=== PATIENT | male | born 1995 | race Caucasian/White ===

== ENCOUNTER 2018-02-17 12:58 | Emergency (ER) | payer BC, OTHER ==
[~2018-02-17] VITALS: Ht 188 cm; Wt 95.3 kg
[~2018-02-17 12:58] MED LIST: CEFD300C3 PO; DOCU-161 PO; HYDR1TAB66 PO; LACT1CAP8 PO; METH4TAB PO; PHEN15SP NS
[2018-02-17] MEDS ORDERED: ASPIRIN 81 MG CHEW (CHILDREN'S ASA) PO ONE (13:15)
[2018-02-17 13:38] LABS: BASOPHILS % (AUTO) 0 % (0-10); EOSINOPHILS # (AUTO) 0.1 10^3/uL (0.0-0.3); EOSINOPHILS % (AUTO) 0 % (0-10); HEMATOCRIT 46 % (40-54); HEMOGLOBIN 15.9 G/DL (13.3-17.7); LYMPHOCYTES # (AUTO) 1.6 X 10^3 (1.0-4.0); LYMPHOCYTES % (AUTO) 14 % (12-44); MEAN CORPUSCULAR HEMOGLOBIN 30 PG (25-34); MEAN CORPUSCULAR HGB CONC 35 G/DL (32-36); MEAN CORPUSCULAR VOLUME 86 FL (80-99); MEAN PLATELET VOLUME 9.3 FL (7.4-10.4); MONOCYTES # (AUTO) 0.7 X 10^3 (0.0-1.0); MONOCYTES % (AUTO) 6 % (0-12); NEUTROPHILS # (AUTO) 9.3 X 10^3 (1.8-7.8); NEUTROPHILS % (AUTO) 79 % (42-75); PLATELET COUNT 322 10^3/uL (130-400); RED BLOOD COUNT 5.35 10^6/uL (4.35-5.85); RED CELL DISTRIBUTION WIDTH 12.9 % (10.0-14.5); WHITE BLOOD COUNT 11.7 10^3/uL (4.3-11.0)
--- NOTE | 2018-02-17 13:52 | Diagnostic Imaging Report ---
Patient History: Anterior chest pain. Technique: Single frontal view of the chest Comparison: None FINDINGS: The lung volumes are normal. No focal consolidation is seen. No large pleural effusion or pneumothorax is seen. The cardiomediastinal silhouette is normal in size and contour. No acute osseous abnormality is seen. IMPRESSION: No acute pulmonary abnormality seen. Dictated by: Dictated on workstation # [id number]
[2018-02-17 13:58] LABS: ALANINE AMINOTRANSFERASE 23 U/L (0-55); ALKALINE PHOSPHATASE 63 U/L (40-136); BILIRUBIN,TOTAL 1.2 MG/DL (0.1-1.0); BUN/CREATININE RATIO 16; CALCIUM 10.3 MG/DL (8.5-10.1); CARBON DIOXIDE 28 MMOL/L (21-32); CHLORIDE 103 MMOL/L (98-107); CREATINE KINASE 197 U/L (30-200); CREATININE SERUM 0.88 MG/DL (0.60-1.30); GFR ESTIMATED > 60; GLUCOSE 96 MG/DL (70-105); MAGNESIUM 2.1 MG/DL (1.8-2.4); POTASSIUM 4.1 MMOL/L (3.6-5.0); SODIUM 139 MMOL/L (135-145); TOTAL PROTEIN 7.4 GM/DL (6.4-8.2)
--- NOTE | 2018-02-17 13:58 | ED Chest Pain ---
General Chief Complaint: Chest Wall/Rib Pain Stated Complaint: CP Nursing Triage Note: AMB TO ROOM REPORTS SINCE LAST NIGHT HAS HAD PRESSURE ACROSS CHEST AND TO L SHOULDER. PRESSURE HAS BEEN INTERMITTEN Nursing Sepsis Screen: No Definite Risk Source: patient Exam Limitations: no limitations History of Present Illness Date Seen by Provider: Feb 17, 2018 Time Seen by Provider: 13:58 Initial Comments 22-year-old male patient presents to the emergency department with complaints of left sided chest pain radiating to the left shoulder and clavicle. Patient states 2 weeks ago they did go skiing and was sore for several days. States this pain feels different then the soreness from skiing. Worse with movement. Patient states it feels crampy in nature. Denies any family history for cardiac disease. 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 states his lips had turned blue during a basketball game and all the cardiac workup was negative.) Modifying Factors: worse with movement, improves with other (improved with aspirin at 0900 and "rubbing the muscle out") Allergies and Home Medications Allergies Coded Allergies: No Known Drug Allergies (Unverified , 03/17/12) Home Medications Naproxen 500 Mg Tablet, 500 MG PO BID Prescribed by: MICHAEL CHRISTY on 02/17/18 152 Orphenadrine Citrate 100 Mg Tablet.er, 100 MG PO BID PRN for SPASMS Prescribed by: MICHAEL CHRISTY on 02/17/181520 Prednisone 20 Mg Tab, 40 MG PO DAILY Prescribed by: MICHAEL CHRISTY on 02/17/18 152 Patient Home Medication List Home Medication List Reviewed: Yes Review of Systems Constitutional: No chills, No diaphoresis, No dizziness, No fever, No malaise EENTM: No Symptoms Reported Respiratory: Denies Cough, Denies Shortness of Air, Denies SOA With Exertion, Denies Wheezing Cardiovascular: See HPI, Chest Pain, Denies Edema, Denies Irregular Heart Rate , Denies Lightheadedness, Denies Palpitations Gastrointestinal: Denies Abdominal Pain, Denies Blood Streaked Stools, Denies Constipated, Denies Diarrhea, Denies Nausea, Denies Poor Appetite, Denies Vomiting, Other (patient does have indigestion occasionally.) Genitourinary: No Symptoms Reported Musculoskeletal: see HPI, No back pain, joint pain (left clavicle.), No joint swelling, No neck pain Skin: no symptoms reported Psychiatric/Neurological: No Symptoms Reported All Other Systems Reviewed Negative Unless Noted: Yes (Negative excepted noted.) Past [place]-Ohzoud-Zprghv Hx Patient Social History Alcohol Use: Occasionally Uses Recreational Drug Use: No Smoking Status: Never a Smoker Recent Foreign Travel: No Contact w/Someone Who Travel: No Recent Infectious Disease Expo: No 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)) Past Medical History Surgeries: Yes (removal of lymph nodes) Respiratory: No Cardiac: No Neurological: No Reproductive Disorders: No Gastrointestinal: No Musculoskeletal: Yes Endocrine: No Psychosocial: No Blood Disorders: No Family Medical History Reviewed Nursing Family Hx No Pertinent Family Hx Physical Exam Vital Signs Vital Signs - First Documented 02/17/18 02/17/18 13:08 15:46 Temp 98.5 Pulse 74 Resp 18 B/P (MAP) 151/99 (116) Pulse Ox 97 O2 Delivery Room Air Capillary Refill : Less Than 3 Seconds General Appearance: No Apparent Distress, WD/WN HEENT: PERRL/EOMI, Pharynx Normal Neck: Full Range of Motion, Normal Inspection, Non Tender, Supple Respiratory: Lungs Clear, Normal Breath Sounds, No Accessory Muscle Use, No Respiratory Distress, Other (the left upper and lateral anterior chest wall is tender to palpation. No deformity, swelling, or ecchymosis noted. ) Cardiovascular: Regular Rate, Rhythm, No Edema, No Murmur, Normal Peripheral Pulses Gastrointestinal: Normal Bowel Sounds, Non Tender, Soft, No Distended Extremity: Normal Capillary Refill, No Calf Tenderness, No Pedal Edema Neurologic/Psychiatric: Alert, Oriented x3, No Motor/Sensory Deficits, Normal Mood/Affect Skin: Normal Color, Warm/Dry Progress/Results/Core Measures Lab Results Laboratory Tests Test 02/17/18 13:21 02/17/18 13:28 Range/Units White Blood Count 11.7 H 4.3-11.0 10^3/uL Red Blood Count 5.35 4.35-5.85 10^6/uL Hemoglobin 15.9 13.3-17.7 G/DL Hematocrit 46 40-54 % Mean Corpuscular Volume 86 80-99 FL Mean Corpuscular Hemoglobin 30 25-34 PG Mean Corpuscular Hemoglobin Concent 35 32-36 G/DL Red Cell Distribution Width 12.9 10.0-14.5 % Platelet Count 322 130-400 10^3/uL Mean Platelet Volume 9.3 7.4-10.4 FL Neutrophils (%) (Auto) 79 H 42-75 % Lymphocytes (%) (Auto) 14 12-44 % Monocytes (%) (Auto) 6 0-12 % Eosinophils (%) (Auto) 0 0-10 % Basophils (%) (Auto) 0 0-10 % Neutrophils # (Auto) 9.3 H 1.8-7.8 X 10^3 Lymphocytes # (Auto) 1.6 1.0-4.0 X 10^3 Monocytes # (Auto) 0.7 0.0-1.0 X 10^3 Eosinophils # (Auto) 0.1 0.0-0.3 10^3/uL Basophils # (Auto) 0.0 0.0-0.1 10^3/uL Sodium Level 139 135-145 MMOL/L Potassium Level 4.1 3.6-5.0 MMOL/L Chloride Level 103 98-107 MMOL/L Carbon Dioxide Level 28 21-32 MMOL/L Anion Gap 8 5-14 MMOL/L Blood Urea Nitrogen 14 7-18 MG/DL Creatinine 0.88 0.60-1.30 MG/DL Estimat Glomerular Filtration Rate > 60 BUN/Creatinine Ratio 16 Glucose Level 96 70-105 MG/DL Calcium Level 10.3 H 8.5-10.1 MG/DL Magnesium Level 2.1 1.8-2.4 MG/DL Total Bilirubin 1.2 H 0.1-1.0 MG/DL Aspartate Amino Transf (AST/SGOT) 24 5-34 U/L Alanine Aminotransferase (ALT/SGPT) 23 0-55 U/L Alkaline Phosphatase 63 40-136 U/L Total Creatine Kinase 197 30-200 U/L Creatine Kinase MB 2.9 <6.6 NG/ML Myoglobin 56.6 10.0-92.0 NG/ML Troponin I < 0.30 <0.30 NG/ML Total Protein 7.4 6.4-8.2 GM/DL Albumin 5.0 H 3.2-4.5 GM/DL TSH Smyth Testing 0.66 0.35-4.94 UIU/ML My Orders Orders - WESTLEYMICHAEL L PA Cbc With Automated Diff (02/17/18 13:15) Magnesium (02/17/18 13:15) Chest 1 View, Ap/Pa Only (02/17/18 13:15) Ekg Tracing (02/17/18 13:15) Cardiac Profile 1 (02/17/18 13:15) Comprehensive Metabolic Panel (02/17/18 13:15) Myoglobin Serum (02/17/18 13:15) O2 (02/17/18 13:15) Monitor-Rhythm Ecg Trace Only (02/17/18 13:15) Aspirin Chewable Tablet (Baby Aspirin Ch (02/17/18 13:15) Saline Lock/Iv-Start (02/17/18 13:15) Creatine Kinase (02/17/18 13:15) Creatine Kinase Mb (02/17/18 13:15) Thyroid Analyzer (02/17/18 14:18) Ketorolac Injection (Toradol Injection) (02/17/18 14:18) Orphenadrine Injection (Norflex Injectio (02/17/18 14:18) Medications Given in ED Current Medications Medications Dose Ordered Sig/Lian Route Start Time Stop Time Status Last Admin Dose Admin Aspirin 324 mg ONCE ONCE PO 02/17/18 13:15 02/17/18 13:16 DC 02/17/18 13:27 324 MG Vital Signs/I&O 02/17/18 02/17/18 13:08 15:46 Temp 98.5 Pulse 74 79 Resp 18 18 B/P (MAP) 151/99 (116) 123/74 Pulse Ox 97 O2 Delivery Room Air Room Air Blood Pressure Mean: 116 Initial ECG Impression Date: Feb 17, 2018 Initial ECG Impression Time: 13:14 Initial ECG Rate: 68 Initial ECG Rhythm: Normal Sinus Initial ECG Intervals: Normal Initial ECG Impression: Normal Initial ECG Comparisson: No Previous ECG Available Comment ECG reviewed with Dr. Mas. Diagonstic Imaging: Xray Plain Films/CT/US/NM/MRI: chest Comments FINDINGS: The lung volumes are normal. No focal consolidation is seen. No large pleural effusion or pneumothorax is seen. The cardiomediastinal silhouette is normal in size and contour. No acute osseous abnormality is seen. IMPRESSION: No acute pulmonary abnormality seen. Dictated by: Dictated on workstation # [id number] Reviewed: Reviewed by Me (radiology report reviewed by me) Departure Communication (Admissions) All laboratory and diagnostic findings discussed with the patient. Patient reports feeling much better with the Norflex and Toradol. We will plan for discharge to home with follow-up as an outpatient with [facility] if needed. Patient to return immediately for worsened symptoms or any other concerns. Impression Primary Impression: Acute costochondritis Disposition: HOME, SELF-CARE Condition: Improved Departure-Patient Inst. Decision time for Depature: 15:19 Referrals: CAILIN BOWLES MD (PCP/Family) Primary Care Physician Patient Instructions: Costochondritis (DC) Add. Discharge Instructions: All discharge instructions reviewed with patient and/or family. Voiced understanding. Medications as instructed. Tylenol [id number] as directed for pain if needed. Use an ice pack or heating pad as needed for pain and muscle spasm. Avoid heavy lifting for 3-5 days, then increase activity as tolerated. Follow-up with your family practitioner or [facility] for recheck if no improvement in symptoms in 7-10 days. Return to the emergency department for worsened symptoms or any other concerns. Scripts Naproxen (Naprosyn) 500 Mg Tablet 500 MG PO BID, #14 TAB 0 Refills Prov: MICHAEL CHRISTY 02/17/18 Orphenadrine Citrate (Orphenadrine Citrate) 100 Mg Tablet.er 100 MG PO BID Y for SPASMS, #10 TAB 0 Refills Prov: MICHAEL CHRISTY 02/17/18 Prednisone (Prednisone) 20 Mg Tab 40 MG PO DAILY, #10 TAB 0 Refills Prov: MICHAEL CHRISTY 02/17/18 Images Torso/Trunk 1 - Tenderness MICHAEL CHRISTY Feb 17, 2018 13:58
[2018-02-17 14:08] LABS: CREATINE KINASE MB 2.9 NG/ML (<6.6); MYOGLOBIN SERUM 56.6 NG/ML (10.0-92.0)
[2018-02-17] MEDS ORDERED: KETOROLAC 30 MG/ML VIAL IVP STA (14:18)
[2018-02-17] MEDS ORDERED: ORPHENADRINE 60 MG/2 ML (NORFLEX) AMP IV STA (14:18)
[2018-02-17] MEDS ORDERED: ORPH100T PO (15:21)
[2018-02-17] MEDS ORDERED: NAPR-1071 PO (15:21)
[2018-02-17] MEDS ORDERED: PRD20T PO (15:21)
[2018-02-17 15:46] VITALS: BP 123/74
== END 2018-02-17 15:41 | disposition home or self-care (01) ==
LOC: EDUNIT# 12:58 → ER 13:01
DX: M94.0 Chondrocostal junction syndrome [Tietze] (principal); Z79.52 Long term (current) use of systemic steroids
CPT/HCPCS: 36415; 71045; 80053; 82550; 82553; 83735; 83874; 84443; 84484; 85025; 93005; 93041

== ENCOUNTER 2018-03-13 05:33 | Outpatient (CLI) | payer OTHER ==
[~2018-03-13] VITALS: Ht 188 cm; Wt 95.3 kg
[~2018-03-13 05:33] MED LIST changes: +NAPR-1071 PO; +ORPH100T PO; +PRD20T PO
[2018-03-13] MEDS ORDERED: ESOM40SU PO (12:54)
[2018-03-28] MEDS ORDERED: ACHD5005 PO (12:22)
[2018-03-28] MEDS ORDERED: DOCU-143 PO (12:22)
== END 2018-03-13 12:55 ==
LOC: PREOP 05:33
PROVIDERS: ATTEND Surgery
DX: Z01.818 Encounter for other preprocedural examination (principal); R13.10 Dysphagia, unspecified; K21.9 Gastro-esophageal reflux disease without esophagitis

== ENCOUNTER → 2018-03-15 | Outpatient (CLI) | payer OTHER ==
[~2018-03-15] MED LIST changes: +ACHD5005 PO; +CATHETER FLUSH 10 ML SYR IV PRN; +DOCU-143 PO; +ESOM40SU PO
--- NOTE | 2018-03-15 15:37 | Diagnostic Imaging Report ---
INDICATION: Gastroesophageal reflux disease. TECHNIQUE: Patient was administered 5.3 mCi Tc 99m Choletec and imaging over the abdomen was performed. Next, patient ingested 8 ounces of Ensure plus at one hour and gallbladder ejection fraction was calculated. FINDINGS: There is homogeneous uptake of activity by the liver with prompt excretion of activity into the common duct and gallbladder. Normal passage of activity into the small bowel is seen. Gallbladder ejection fraction is low at 18%. Normal value is at 35% or greater. IMPRESSION: 1. No evidence of cystic duct or common bile duct obstruction. 2. Low gallbladder ejection fraction of 18%. Dictated by: Dictated on workstation # [id number]
== END ==
LOC: CARD 12:31
PROVIDERS: ATTEND Surgery
DX: K21.9 Gastro-esophageal reflux disease without esophagitis (principal)
CPT/HCPCS: 78227

== ENCOUNTER 2018-03-19 06:49 | Day surgery (SDC) | payer OTHER ==
[~2018-03-19] VITALS: Ht 188 cm; Wt 95.3 kg
[~2018-03-19 06:49] MED LIST changes: -ACHD5005 PO; -CATHETER FLUSH 10 ML SYR IV PRN; -DOCU-143 PO
[2018-03-19] MEDS ORDERED: LACTATED RINGERS 1,000 ML IV STA (07:03)
[2018-03-19] MEDS ORDERED: LACTATED RINGERS 1,000 ML IV ONE (07:03)
[2018-03-19] MEDS ORDERED: HURRICAINE EXT TUBE (BENZOCAINE) XX PRN (07:15)
[2018-03-19 07:16] VITALS: BP 130/88
[2018-03-19] MEDS ORDERED: proPOfol 200 MG/20 ML (DIPRIVAN) VIAL IV ONE ×2 (07:42→07:59)
[2018-03-19] MEDS ORDERED: MIDAZOLAM 2 MG/2 ML (VERSED) VIAL ONE ×2 (07:42)
--- NOTE | 2018-03-19 07:53 | Progress Note-Pre Operative ---
Pre-Operative Progress Note H&P Reviewed The H&P was reviewed, patient examined and no changes noted. Date Seen by Provider: March 19, 2018 Time Seen by Provider: 07:52 Date H&P Reviewed: March 19, 2018 Time H&P Reviewed: 07:52 Pre-Operative Diagnosis: gerd epigastric abdominal pain, dysphagia RADHA VILLELA DO March 19, 2018 07:53
[2018-03-19] MEDS ORDERED: HURRICAINE EXT TUBE (BENZOCAINE) ONE (08:00)
--- NOTE | 2018-03-19 08:11 | Progress Note-Post Operative ---
Post-Operative Progess Note Surgeon (s)/Director International (s) Surgeon RADHA VILLELA DO Director International: na Pre-Operative Diagnosis gerd epigastric abdominal pain, dysphagia Post-Operative Diagnosis small antral ulceration Procedure & Operative Findings Date of Procedure 03/19/18 Procedure Performed/Findings egd c biopsies antrum and ge junction Anesthesia Type per mda Estimated Blood Loss Estimated blood loss (mL): none Specimens/Packing Specimens Removed antrum, ge RADHA VILLELA DO March 19, 2018 08:11
--- NOTE | 2018-03-19 08:12 | Discharge Inst-Simple/Standard ---
Discharge Inst-Standard Patient Instructions/Follow Up Plan of Care/Instructions/FU: 2 weeks Ana Activity as Tolerated: Yes Discharge Diet: Regular Diet RADHA VILLELA DO March 19, 2018 08:12
[2018-03-19 08:50] VITALS: BP 104/74
--- NOTE | 2018-03-19 14:33 | Anesthesia-General Post-Op ---
MAC Patient Condition Mental Status/LOC: Same as Preop Cardiovascular: Satisfactory Nausea/Vomiting: Absent Respiratory: Satisfactory Pain: Controlled Complications: Absent Post Op Complications Complications None Follow Up Care/Instructions Patient Instructions None needed. Anesthesiology Discharge Order Discharge Order Patient was seen after the procedure and he was doing well, no complaints, stable vital signs, no apparent adverse anesthesia problems. ALAYNA URIBE DO March 19, 2018 14:33
--- NOTE | 2018-03-19 16:57 | OPERATIVE REPORT ---
DATE OF SERVICE: 03/19/2018 PREOPERATIVE DIAGNOSES: Dysphagia, GERD, epigastric abdominal pain. POSTOPERATIVE DIAGNOSES: Small antral ulcer. PROCEDURE: EGD with biopsies of the antrum, GE junction. SURGEON: Radha Perez DO ANESTHESIA: Per MDA. ESTIMATED BLOOD LOSS: None. COMPLICATIONS: None. INDICATIONS: The patient is a 22-year-old male who has been having some GERD and dysphagia, also some slight epigastric abdominal pain. He understands risks and benefits of procedure and wished to proceed with procedure. Consent was signed in the chart. PROCEDURE: The patient was taken to the endoscopy suite, placed in left lateral recumbent position. Timeout was performed. Scope was inserted in mouth, down the esophagus, stomach and into the duodenum without difficulty. There were no polyps, mass or ulcerations in the duodenum. Scope was slowly retracted back into the stomach and was further insufflated. In the antrum a small antral ulceration present. Biopsy of this area was obtained. Scope was retroflexed noting no other pathology. Scope was returned to its normal position, slowly withdrawn to the distal esophagus. There was no pulse, mass or ulcerations. Biopsy of the GE junction was obtained. Scope was then slowly retracted back until completely removed, noting no other pathology. The patient tolerated procedure well without any complications, taken to recovery room in stable condition. RECOMMENDATIONS: The patient is to continue on Nexium. He will have follow up on biopsies in a couple weeks. If he has any problems prior to that, he should be reevaluated at that time. Job ID: [id number] DocumentID: [id number] Dictated Date: 03/19/2018 08:16:02 Glass Embosser Date: 03/19/2018 16:56:50 Dictated By: RADHA PEREZ DO
[2018-03-28] MEDS ORDERED: ACHD5005 PO (12:22)
[2018-03-28] MEDS ORDERED: DOCU-143 PO (12:22)
== END 2018-03-19 08:50 | disposition home or self-care (01) ==
LOC: ENDO 06:49
PROVIDERS: ATTEND Surgery
DX: K25.9 Gastric ulcer, unspecified as acute or chronic, without hemorrhage or perforation (principal); K21.9 Gastro-esophageal reflux disease without esophagitis; R13.10 Dysphagia, unspecified
CPT/HCPCS: 88305

== ENCOUNTER 2018-03-26 05:31 | Outpatient (CLI) | payer OTHER ==
[~2018-03-26] VITALS: Ht 188 cm; Wt 95.3 kg
[2018-03-28] MEDS ORDERED: ACHD5005 PO (12:22)
[2018-03-28] MEDS ORDERED: DOCU-143 PO (12:22)
== END 2018-03-26 10:46 ==
LOC: PREOP 05:31
PROVIDERS: ATTEND Surgery
DX: Z01.818 Encounter for other preprocedural examination (principal)